=== PATIENT | female | born 1935 | race Caucasian/White ===

== ENCOUNTER → 2016-11-26 | Outpatient (REF) | payer MEDICARE, BC ==
[2016-11-26 11:47] LABS: MEAN CORPUSCULAR HEMOGLOBIN 29.8 pg (27.0-33.0); MEAN CORPUSCULAR HGB CONC 31.9 g/dl (32.0-36.5); MEAN CORPUSCULAR VOLUME 93.5 fl (80.0-96.0); RED CELL DISTRIBUTION WIDTH 15.1 % (11.5-14.5); WHITE BLOOD COUNT 7.8 K/mm3 (4.0-10.0)
[2016-11-26 12:06] LABS: ALBUMIN 3.5 GM/DL (3.2-5.2); ALBUMIN/GLOBULIN RATIO 0.97 (1.00-1.93); BILIRUBIN,TOTAL 0.6 MG/DL (0.2-1.0); CALCIUM LEVEL 9.1 MG/DL (8.8-10.2); CREATININE FOR GFR 1.71 MG/DL (0.55-1.02); GLOMERULAR FILTRATION RATE 30.5 (>32); TOTAL PROTEIN 7.1 GM/DL (6.4-8.2); URIC ACID 4.9 MG/DL (2.6-6.0)
== END ==
LOC: M SFHCCLAY 07:46
PROVIDERS: ATTEND Nurse Practitioner Family
DX: E11.40 Type 2 diabetes mellitus with diabetic neuropathy, unspecified (principal); E78.4 Other hyperlipidemia; E03.9 Hypothyroidism, unspecified; M10.9 Gout, unspecified; E55.9 Vitamin D deficiency, unspecified

== ENCOUNTER → 2017-03-28 | Outpatient (REF) | payer MEDICARE, BC ==
[2017-03-28 11:29] LABS: URIC ACID 3.6 MG/DL (2.6-6.0)
== END ==
LOC: M SFHCCLAY 07:33
PROVIDERS: ATTEND Nurse Practitioner Family
DX: E11.65 Type 2 diabetes mellitus with hyperglycemia (principal); E78.4 Other hyperlipidemia; E55.9 Vitamin D deficiency, unspecified; M10.9 Gout, unspecified

== ENCOUNTER → 2017-04-01 | Outpatient (CLI) | payer MEDICARE, BC ==
--- NOTE | 2017-04-01 17:27 | REP ---
Right shoulder: Three views: History: Shoulder injury. Injury in a fall 2-3 weeks ago. Pain with limitation of range of motion. Findings: There is diffuse osteopenia. The right glenohumeral and acromioclavicular joints are normally aligned. There is periarticular soft-tissue calcification in the region of the rotator cuff. There is also periarticular soft-tissue calcification along the superior aspect of the acromioclavicular joint and some tendon insertion site spurring is seen along the superior aspect of the acromion process. These changes are degenerative. Impression: No traumatic abnormality noted. Diffuse osteopenia. Periarticular calcifications at the AC joint and in the region of the distal rotator cuff tendons.
== END ==
LOC: M CLY 11:15
PROVIDERS: ATTEND Nurse Practitioner Family
DX: S49.91XA Unspecified injury of right shoulder and upper arm, initial encounter (principal); M85.80 Other specified disorders of bone density and structure, unspecified site; W19.XXXA Unspecified fall, initial encounter; Y92.9 Unspecified place or not applicable; Y93.9 Activity, unspecified; Y99.9 Unspecified external cause status
CPT/HCPCS: 73030; G0463

== ENCOUNTER → 2017-06-20 | Outpatient (REF) | payer MEDICARE, BC ==
[2017-06-20 13:28] LABS: URIC ACID 3.7 MG/DL (2.6-6.0)
== END ==
LOC: M SFHCCLAY 07:45
PROVIDERS: ATTEND Nurse Practitioner Family
DX: E11.40 Type 2 diabetes mellitus with diabetic neuropathy, unspecified (principal); S49.90XA Unspecified injury of shoulder and upper arm, unspecified arm, initial encounter; E78.4 Other hyperlipidemia; E03.9 Hypothyroidism, unspecified; M10.9 Gout, unspecified; E55.9 Vitamin D deficiency, unspecified; X58.XXXA Exposure to other specified factors, initial encounter; Y92.89 Other specified places as the place of occurrence of the external cause; Y93.89 Activity, other specified; Y99.8 Other external cause status

== ENCOUNTER → 2017-07-30 | Outpatient (REF) | payer MEDICARE, BC ==
[2017-07-30 14:16] LABS: BASO # 0.1 K/mm3 (0.0-0.2); EOS # 0.2 K/mm3 (0.0-0.50); EOS % 3.3 % (0.0-3.0); LARGE UNSTAINED CELL # 0.1 K/mm3 (0.0-0.4); LARGE UNSTAINED CELL % 1.4 % (0.0-4.0); LYMPH # 1.9 K/mm3 (1.5-4.5); LYMPH % 23.6 % (24.0-44.0); MEAN CORPUSCULAR HEMOGLOBIN 29.5 pg (27.0-33.0); MEAN CORPUSCULAR HGB CONC 30.4 g/dl (32.0-36.5); MEAN CORPUSCULAR VOLUME 97.2 fl (80.0-96.0); MONO # 0.4 K/mm3 (0.0-0.8); MONO % 4.9 % (0.0-5.0); NEUTROPHILS # 5.1 K/mm3 (1.8-7.7); NEUTROPHILS % 65.8 % (36.0-66.0); PLATELET COUNT, AUTOMATED 186 k/mm3 (150-450); RED CELL DISTRIBUTION WIDTH 16.9 % (11.5-14.5); WHITE BLOOD COUNT 7.7 K/mm3 (4.0-10.0)
[2017-07-30 14:40] LABS: ALBUMIN 3.5 GM/DL (3.2-5.2); ALBUMIN/GLOBULIN RATIO 0.97 (1.00-1.93); BILIRUBIN,TOTAL 0.4 MG/DL (0.2-1.0); CALCIUM LEVEL 8.8 MG/DL (8.8-10.2); CREATININE FOR GFR 1.33 MG/DL (0.55-1.02); GLOMERULAR FILTRATION RATE 40.7 (>32); POTASSIUM SERUM 4.3 MEQ/L (3.5-5.1); TOTAL PROTEIN 7.1 GM/DL (6.4-8.2)
[2017-07-30 14:52] LABS: FOLATE 14.4 NG/ML
[2017-07-30 15:08] LABS: ERYTHROCYTE SEDIMENTATION RATE 25 mm/hr (0-30)
[2017-08-04 08:10] LABS: Lyme Disease IgG/IgM Antibodie <0.91 ISR (0.00-0.90); Lyme Disease IgM Ab Quantitati <0.80 index (0.00-0.79); VITAMIN E LEVEL 10.8 mg/L (6.5-21.5)
== END ==
LOC: M LABNEURO 13:18
PROVIDERS: ATTEND Psychiatry & Neurology Neurology
DX: G62.9 Polyneuropathy, unspecified (principal); R25.1 Tremor, unspecified; Z79.899 Other long term (current) drug therapy

== ENCOUNTER → 2017-08-01 | Outpatient (CLI) | payer MEDICARE, BC ==
--- NOTE | 2017-08-04 08:51 | REP ---
MRI BRAIN WITHOUT CONTRAST: 08/01/2017. Clinical history: Trauma 06/09. Technique: Sagittal T1 with axial T2, FLAIR, gradient-echo and diffusion-weighted images with ADC mapping sequences. Findings: There are no prior studies. Lateral ventricles are midline, symmetric, dilated in proportion to the diffuse cerebral atrophy and age appropriate. There are multiple scattered deep and subcortical white matter T2 and FLAIR hyperintense foci along with some periventricular white matter change. Basal ganglia show a few white matter foci as well. There is cortical atrophy. There is no vascular territory infarct, hemorrhage, mass or mass effect. No extra-axial hemorrhage or significant fluid collection, other than the effect of atrophy. Corpus callosum, optic chiasm and craniocervical junction are unremarkable. There is a partially empty sella. Brainstem was unremarkable. The cerebellum shows atrophy. The seventh/eighth cranial nerve complexes were normal. Basal cisterns intact. Mastoids show partial opacification on the left representing some mastoiditis. The bilateral ethmoids and sphenoids show mild mucosal thickening. There is more mucosal disease in the left maxillary sinus. The frontal sinuses and right maxillary sinus clear. Orbits and contents symmetric and normal. Impression. 1. Fairly extensive chronic small vessel white matter ischemic changes in deep and periventricular white matter as well as the subcortical regions throughout.2. Ventriculomegaly with proportionate atrophy, age appropriate. 3. No intracranial hemorrhage, acute infarct, mass or other significant finding. The sinuses show mucosal thickening bilaterally in the ethmoids (minimal) sphenoids and left maxillary region. Some mild left mastoiditis. Signed by Benito Feliz MD 08/04/2017 03:39 P
== END ==
LOC: M PLARAD 15:18
PROVIDERS: ATTEND Psychiatry & Neurology Neurology
DX: G31.9 Degenerative disease of nervous system, unspecified (principal); R90.82 White matter disease, unspecified; I67.82 Cerebral ischemia

== ENCOUNTER → 2017-09-13 | Outpatient (CLI) | payer MEDICARE, BC ==
--- NOTE | 2017-09-15 19:31 | SLEEPCENT ---
DATE OF PROCEDURE: 09/13/2017 ORDERED BY: Gela Doshi Nocturnal polysomnography was performed for evaluation of sleep physiology in this patient with a history of coronary artery disease, cardiomyopathy and atrial fibrillation. 7 hours and 49 minutes of data were reviewed. There were 312 minutes of sleep identified. Sleep latency was prolonged at 32 minutes. Rapid eye movement (REM) sleep was quite delayed at 287 minutes. Sleep architecture showed severe fragmentation. Overall sleep efficiency was reduced at 67.9%. EKG showed atrial fibrillation with a ventricular response rate of 55 beats per minute. EEG showed essentially normal waveforms for awake and sleep. There were 217 respiratory events identified of 10 seconds in duration or greater for an apnea-hypopnea index of 41.7. The events were primarily obstructive, not exclusive to sleep stage nor body posture. Arousals from respiratory events occurred 12.7 times per hour and oxygen desaturations were seen into the 80s. Remaining measures of sleep physiology were normal. IMPRESSION: Severe obstructive sleep apnea syndrome (G47.33). Apnea-hypopnea index 41.7. RECOMMENDATION: The patient should be encouraged to return to the sleep disorder center at her earliest convenience for pressure therapy. In the interim, alcohol and sedative avoidance should be practiced and caution exercised during the operation of motor vehicles. Copy To: Dr. Lepe
== END ==
LOC: M SLEEP 20:00
PROVIDERS: ATTEND Nurse Practitioner Adult Health
DX: G47.33 Obstructive sleep apnea (adult) (pediatric) (principal)

== ENCOUNTER → 2017-10-05 | Outpatient (CLI) | payer MEDICARE, BC ==
--- NOTE | 2017-10-06 19:25 | SLEEPCENT ---
DATE OF PROCEDURE: 10/05/2017 ORDERED BY: Gela Doshi Nocturnal polysomnography was performed for titration of pressure therapy in this patient with severe obstructive sleep apnea syndrome, apnea-hypopnea index of 41.7. For testing, the patient was unable to tolerate nasal and oronasal masks. A nasal pillow device was used, Graze nasal pillows of small size, 4 cm of water pressure were applied to the circuit and the lights were extinguished. 7 hours and 33 minutes of data were reviewed. There were only 184 minutes of sleep identified. Sleep latency was prolonged at 40 minutes. The patient did not achieve rapid eye movement (REM) sleep. Overall sleep architecture was poor with fragmentation, poor progression and periods of wake. EKG shows atrial fibrillation with a ventricular response rate of 56 beats per minute. EEG showed normal waveforms for awake and sleep. Persistence of respiratory events prompted an increase in pressure therapy. The patient had difficulty with mouth opening despite the use of chin strap. Despite optimal mask fit, minimal air leak, a change was tried to bilevel therapy. Mask intolerance made identification of optimal pressure difficult. Best sleep was seen on bilevel therapy at a pressure of 12 inspiratory, expiratory pressure of 7, though minimal data was available at this pressure level. Significant limb activity was also appreciated on this occasion with a limb movement arousal index of 17. This is up substantially from the diagnostic study. IMPRESSION: Obstructive sleep apnea syndrome (G47.33). RECOMMENDATION: Initiation of pressure therapy using a bilevel device, inspiratory pressure of 12 over expiratory pressure of 7 would seem best based on this testing. However, the patient's mask intolerance and limited sleep during the study suggests that further titration would be of benefit once she has become accustomed to some form of pressure delivery device. It would seem, based on these results, that she would do best with a full face mask if she would allow for this given the mouth opening despite the use of a chin strap. Pending response to pressure therapy, re-titration studies are recommended to identify optimal pressure. Copy To: Dr. Lepe
== END ==
LOC: M SLEEP 20:00
PROVIDERS: ATTEND Nurse Practitioner Adult Health
DX: G47.33 Obstructive sleep apnea (adult) (pediatric) (principal)

== ENCOUNTER → 2017-12-26 | Outpatient (REF) | payer MEDICARE, BC ==
[2017-12-26 11:51] LABS: CHOLESTEROL LEVEL 237 MG/DL (<200); HDL CHOLESTEROL 60 MG/DL (>40); LDL CHOLESTEROL 142.4 MG/DL (<100); NON-HDL-C 177 MG/DL; TRIGLYCERIDES LEVEL 173 MG/DL (<150)
[2017-12-26 14:06] LABS: ESTIMATED AVERAGE GLUCOSE 163 MG/DL (60-110); HEMOGLOBIN A1c 7.3 %
== END ==
LOC: M SFHCCLAY 08:20
DX: E11.40 Type 2 diabetes mellitus with diabetic neuropathy, unspecified (principal); E78.4 Other hyperlipidemia
CPT/HCPCS: 83036

== ENCOUNTER → 2018-08-18 | Outpatient (REF) | payer MEDICARE, BC ==
[2018-08-18 15:56] LABS: ESTIMATED AVERAGE GLUCOSE 151 MG/DL (60-110); HEMOGLOBIN A1c 6.9 %
== END ==
LOC: M SFHCCLAY 08:43
DX: E11.40 Type 2 diabetes mellitus with diabetic neuropathy, unspecified (principal); S49.90XA Unspecified injury of shoulder and upper arm, unspecified arm, initial encounter; W18.30XA Fall on same level, unspecified, initial encounter; Y92.009 Unspecified place in unspecified non-institutional (private) residence as the place of occurrence of the external cause
CPT/HCPCS: 83036

== ENCOUNTER → 2018-08-19 | Outpatient (REF) | payer MEDICARE, BC ==
[2018-08-19 19:27] LABS: CREATININE, URINE 40.1 MG/DL; MALB URINE SIEMENS 14.6 MG/L
[2018-08-19 19:34] LABS: MAU/CREAT RATIO 36.4 MCG/MG (0.0-30.0)
== END ==
LOC: M SFHCCLAY 16:33
DX: E11.40 Type 2 diabetes mellitus with diabetic neuropathy, unspecified (principal)
CPT/HCPCS: 82043

== ENCOUNTER → 2018-09-10 | Outpatient (REF) | payer MEDICARE, BC ==
[2018-09-10 13:55] LABS: IRON (FE) 132 UG/DL (50-170); PERCENT SATURATION 52.8 % (13.2-45.0); TOTAL IRON BINDING CAPACITY 250 UG/DL (250-450)
[2018-09-10 14:03] LABS: FOLATE 16.8 NG/ML
== END ==
LOC: M LAB REF 13:17
DX: D64.9 Anemia, unspecified (principal)

== ENCOUNTER → 2018-09-10 | Outpatient (CLI) | payer MEDICARE, BC | LOC: M SMT 12:05 | DX: N18.3 Chronic kidney disease, stage 3 (moderate) (principal); R60.0 Localized edema; D64.9 Anemia, unspecified | CPT/HCPCS: 82746 ==

== ENCOUNTER 2018-09-20 10:51 | Emergency (ER) | payer MEDICARE, BC ==
[2018-09-20] MEDS: NS 1,000 ML IV ×2 (12:08)
[2018-09-20 12:18] LABS: HEMATOCRIT 29.8 % (36.0-47.0); HEMOGLOBIN 9.9 g/dl (12.0-15.5); MEAN CORPUSCULAR HEMOGLOBIN 34.4 pg (27.0-33.0); MEAN CORPUSCULAR HGB CONC 33.2 g/dl (32.0-36.5); MEAN CORPUSCULAR VOLUME 103.5 fl (80.0-96.0); PLATELET COUNT, AUTOMATED 118 10^3/uL (150-450); RED BLOOD COUNT 2.88 10^6/uL (4.00-5.40); RED CELL DISTRIBUTION WIDTH 19.4 % (11.5-14.5); WHITE BLOOD COUNT 3.3 10^3/uL (4.0-10.0)
[2018-09-20 12:24] LABS: BEDSIDE GLUCOSE 151 MG/DL (83-110)
[2018-09-20 12:28] LABS: ADD MANUAL DIFFER YES; DIFF SLIDE NUMBER 108; POS COUNT POS FLAG; POSITIVE MORPH POS FLAG
[2018-09-20 12:52] LABS: ALBUMIN 2.9 GM/DL (3.2-5.2); ALBUMIN/GLOBULIN RATIO 0.69 (1.00-1.93); ALKALINE PHOSPHATASE 69 U/L (45-117); ALT/SGPT 14 U/L (12-78); AMYLASE 16 U/L (25-115); ANION GAP 12 MEQ/L (8-16); AST/SGOT 24 U/L (7-37); BILIRUBIN,DIRECT 0.2 MG/DL (0.0-0.2); BILIRUBIN,TOTAL 0.9 MG/DL (0.2-1.0); BLOOD UREA NITROGEN 32 MG/DL (7-18); CALCIUM LEVEL 8.3 MG/DL (8.8-10.2); CARBON DIOXIDE LEVEL 26 MEQ/L (21-32); CHLORIDE LEVEL 97 MEQ/L (98-107); CK-MB VALUE MASS < 1.0 NG/ML (<3.6); CPK CREATINE PHOSPHOKINASE 76 U/L (26-192); CREATININE FOR GFR 1.42 MG/DL (0.55-1.30); GLOMERULAR FILTRATION RATE 37.6 (>32); GLUCOSE, FASTING 149 MG/DL (70-100); LIPASE 54 U/L (73-393); MB/CK RELATIVE INDEX 1.32 (< OR =4); POTASSIUM SERUM 4.8 MEQ/L (3.5-5.1); SODIUM LEVEL 135 MEQ/L (136-145); TOTAL PROTEIN 7.1 GM/DL (6.4-8.2); TROPONIN I < 0.02 NG/ML (< 0.10)
[2018-09-20 12:52] LABS: LACTIC ACID SEPSIS PROTOCOL 2.4 MMOL/L (0.4-2.0)
[2018-09-20 13:20] LABS: BASOPHILS 4 % (0-4); EOSINOPHILS 1 % (0-5); LYMPHOCYTES 36 % (16-52); METAMYELOCYTES 2 % (0-0); MONOCYTES 4 % (0-8); MYELOCYTES 5 % (0-0); NEUTROPHILS 48 % (35-75); PLATELET ESTIMATE DECREASED (NORMAL)
[2018-09-20] MEDS: MECLIZINE 12.5 MG TAB PO ×2 (13:32)
== END 2018-09-20 15:36 | disposition home or self-care (01) ==
LOC: M ED 10:51
DX: H81.399 Other peripheral vertigo, unspecified ear (principal); R11.2 Nausea with vomiting, unspecified; I67.81 Acute cerebrovascular insufficiency; R91.8 Other nonspecific abnormal finding of lung field; R94.31 Abnormal electrocardiogram [ECG] [EKG]; D53.9 Nutritional anemia, unspecified; I48.91 Unspecified atrial fibrillation; G31.9 Degenerative disease of nervous system, unspecified; E11.9 Type 2 diabetes mellitus without complications; I12.9 Hypertensive chronic kidney disease with stage 1 through stage 4 chronic kidney disease, or unspecified chronic kidney disease; N18.4 Chronic kidney disease, stage 4 (severe); G47.33 Obstructive sleep apnea (adult) (pediatric); K21.9 Gastro-esophageal reflux disease without esophagitis; Z95.5 Presence of coronary angioplasty implant and graft; Z90.49 Acquired absence of other specified parts of digestive tract; Z98.0 Intestinal bypass and anastomosis status; Z87.891 Personal history of nicotine dependence; Z88.5 Allergy status to narcotic agent; Z79.4 Long term (current) use of insulin; Z79.890 Hormone replacement therapy; Z79.899 Other long term (current) drug therapy
CPT/HCPCS: 71045

== ENCOUNTER → 2018-09-20 | Outpatient (REF) | payer MEDICARE, BC ==
[2018-09-21 13:04] LABS: FOLATE > 24.0 NG/ML
== END ==
LOC: M LABDRAWC 12:36
DX: D53.9 Nutritional anemia, unspecified (principal)

== ENCOUNTER → 2018-09-21 | Outpatient (REF) | payer MEDICARE, BC | LOC: M SFHCCLAY 11:28 | DX: D53.9 Nutritional anemia, unspecified (principal) ==

== ENCOUNTER 2018-09-25 10:57 | Emergency (ER) | payer MEDICARE, BC ==
[2018-09-25 11:57] LABS: HEMATOCRIT 29.8 % (36.0-47.0); HEMOGLOBIN 9.7 g/dl (12.0-15.5); MEAN CORPUSCULAR HEMOGLOBIN 33.8 pg (27.0-33.0); MEAN CORPUSCULAR HGB CONC 32.6 g/dl (32.0-36.5); MEAN CORPUSCULAR VOLUME 103.8 fl (80.0-96.0); PLATELET COUNT, AUTOMATED 119 10^3/uL (150-450); RED BLOOD COUNT 2.87 10^6/uL (4.00-5.40); RED CELL DISTRIBUTION WIDTH 19.8 % (11.5-14.5); WHITE BLOOD COUNT 5.1 10^3/uL (4.0-10.0)
[2018-09-25 12:00] LABS: ADD MANUAL DIFFER YES; DIFF SLIDE NUMBER 236; POS COUNT POS FLAG; POSITIVE MORPH POS FLAG
[2018-09-25 12:54] LABS: BASOPHILS 1 % (0-4); BLAST CELLS 3 % (0-0); LYMPHOCYTES 37 % (16-52); METAMYELOCYTES 6 % (0-0); MONOCYTES 2 % (0-8); MYELOCYTES 7 % (0-0); NEUTROPHILS 41 % (35-75); NUCLEATED RED BLOOD CELL 1 % (0-0); PROMYELOCYTES 3 % (0-0); ROULEAUX 1+
[2018-09-25 12:55] LABS: ANISOCYTOSIS 1+; PLATELET ESTIMATE DECREASED (NORMAL)
[2018-09-25 13:07] LABS: ACETAMINOPHEN LEVEL < 2.0 UG/ML (10.0-30.0); ALBUMIN 2.6 GM/DL (3.2-5.2); ALBUMIN/GLOBULIN RATIO 0.58 (1.00-1.93); ALKALINE PHOSPHATASE 73 U/L (45-117); ALT/SGPT 12 U/L (12-78); ANION GAP 14 MEQ/L (8-16); AST/SGOT 18 U/L (7-37); BILIRUBIN,DIRECT 0.3 MG/DL (0.0-0.2); BILIRUBIN,TOTAL 0.7 MG/DL (0.2-1.0); BLOOD UREA NITROGEN 28 MG/DL (7-18); CALCIUM LEVEL 8.2 MG/DL (8.8-10.2); CARBON DIOXIDE LEVEL 28 MEQ/L (21-32); CHLORIDE LEVEL 98 MEQ/L (98-107); CK-MB VALUE MASS < 1.0 NG/ML (<3.6); CPK CREATINE PHOSPHOKINASE 31 U/L (26-192); CREATININE FOR GFR 1.64 MG/DL (0.55-1.30); ETHYL ALCOHOL (ETHANOL) < 0.003 % (0.000-0.010); GLOMERULAR FILTRATION RATE 31.9 (>32); GLUCOSE, FASTING 189 MG/DL (70-100); MB/CK RELATIVE INDEX 3.23 (< OR =4); POTASSIUM SERUM 3.6 MEQ/L (3.5-5.1); SALICYLATE LEVEL < 1.7 MG/DL (5.0-30.0); SODIUM LEVEL 140 MEQ/L (136-145); TOTAL PROTEIN 7.1 GM/DL (6.4-8.2); TROPONIN I < 0.02 NG/ML (< 0.10)
[2018-09-25 13:36] LABS: LACTIC ACID SEPSIS PROTOCOL 2.5 MMOL/L (0.4-2.0)
[2018-09-25] MEDS ORDERED: NS 1,000 ML IV (15:00)
[2018-09-25 15:11] LABS: RETIC HEMOGLOBIN EQUIVALENT 37.4 pg (24-36); RETICULOCYTE # 57.4 10^9/L (17-77)
[2018-09-25 15:47] LABS: LDH LACTATE DEHYDROGENASE 300 U/L (84-246)
[2018-09-27 08:06] LABS: HAPTOGLOBIN 302 mg/dL (34-200)
== END 2018-09-25 15:57 | disposition short-term general hospital (02) ==
LOC: M ED 10:57
DX: C95.00 Acute leukemia of unspecified cell type not having achieved remission (principal); I48.91 Unspecified atrial fibrillation; I25.10 Atherosclerotic heart disease of native coronary artery without angina pectoris; E11.9 Type 2 diabetes mellitus without complications; I10 Essential (primary) hypertension; K44.9 Diaphragmatic hernia without obstruction or gangrene; Z95.5 Presence of coronary angioplasty implant and graft; Z79.01 Long term (current) use of anticoagulants; Z79.899 Other long term (current) drug therapy; Z88.5 Allergy status to narcotic agent; Z88.0 Allergy status to penicillin
CPT/HCPCS: 71045

== ENCOUNTER → 2018-10-06 | Outpatient (REF) ==
[2018-10-06 12:01] LABS: HEMATOCRIT 25.1 % (36.0-47.0); HEMOGLOBIN 7.9 g/dl (12.0-15.5); MEAN CORPUSCULAR HEMOGLOBIN 33.6 pg (27.0-33.0); MEAN CORPUSCULAR HGB CONC 31.5 g/dl (32.0-36.5); MEAN CORPUSCULAR VOLUME 106.8 fl (80.0-96.0); PLATELET COUNT, AUTOMATED 113 10^3/uL (150-450); RED BLOOD COUNT 2.35 10^6/uL (4.00-5.40); RED CELL DISTRIBUTION WIDTH 20.6 % (11.5-14.5); WHITE BLOOD COUNT 2.7 10^3/uL (4.0-10.0)
[2018-10-06 12:44] LABS: ANION GAP 10 MEQ/L (8-16); BLOOD UREA NITROGEN 33 MG/DL (7-18); CALCIUM LEVEL 8.1 MG/DL (8.8-10.2); CARBON DIOXIDE LEVEL 26 MEQ/L (21-32); CHLORIDE LEVEL 104 MEQ/L (98-107); CREATININE FOR GFR 1.33 MG/DL (0.55-1.30); GLOMERULAR FILTRATION RATE 40.6 (>32); GLUCOSE, FASTING 148 MG/DL (70-100); POTASSIUM SERUM 4.8 MEQ/L (3.5-5.1); SODIUM LEVEL 140 MEQ/L (136-145)
== END ==
DX: C92.00 Acute myeloblastic leukemia, not having achieved remission (principal)

== ENCOUNTER → 2018-10-08 | Outpatient (REF) ==
[2018-10-08 14:25] LABS: HEMATOCRIT 23.7 % (36.0-47.0); HEMOGLOBIN 7.5 g/dl (12.0-15.5); MEAN CORPUSCULAR HEMOGLOBIN 34.1 pg (27.0-33.0); MEAN CORPUSCULAR HGB CONC 31.6 g/dl (32.0-36.5); MEAN CORPUSCULAR VOLUME 107.7 fl (80.0-96.0); PLATELET COUNT, AUTOMATED 118 10^3/uL (150-450); RED CELL DISTRIBUTION WIDTH 20.9 % (11.5-14.5); WHITE BLOOD COUNT 2.9 10^3/uL (4.0-10.0)
[2018-10-08 14:42] LABS: ANION GAP 7 MEQ/L (8-16); BLOOD UREA NITROGEN 32 MG/DL (7-18); CALCIUM LEVEL 8.4 MG/DL (8.8-10.2); CARBON DIOXIDE LEVEL 26 MEQ/L (21-32); CHLORIDE LEVEL 105 MEQ/L (98-107); GLOMERULAR FILTRATION RATE 35.3 (>32); GLUCOSE, FASTING 147 MG/DL (70-100); IRON (FE) 104 UG/DL (50-170); PERCENT SATURATION 38.7 % (13.2-45.0); SODIUM LEVEL 138 MEQ/L (136-145); TOTAL IRON BINDING CAPACITY 269 UG/DL (250-450)
== END ==
DX: R53.1 Weakness (principal)

== ENCOUNTER 2018-10-09 10:15 | Outpatient (CLI) | payer MEDICARE, BC ==
[2018-10-09] MEDS ORDERED: diphenhydrAMINE 25 MG CAP As Ordered (14:43)
[2018-10-09] MEDS: diphenhydrAMINE 25 MG CAP PO (14:44)
[2018-10-09] MEDS ORDERED: ACETAMINOPHEN TAB 650MG DOSE (2X325MG) As Ordered (14:54)
[2018-10-09] MEDS: ACETAMINOPHEN TAB 650MG DOSE (2X325MG) PO (14:54)
[2018-10-09] MEDS: FUROSEMIDE 20 MG/2 ML VIAL (J1940) IV (19:59)
[2018-10-09] MEDS: PANTOPRAZOLE 40MG TAB (PROTONIX) PO (19:59)
== END 2018-10-09 21:46 ==
LOC: M LAB 10:15 → M MSPAV 18:10 → M LAB 21:46
DX: D64.9 Anemia, unspecified (principal)

== ENCOUNTER 2018-10-09 23:20 | Inpatient (IN) | payer MEDICARE, BC ==
[2018-10-10 00:22] LABS: ANION GAP 8 MEQ/L (8-16); BLOOD UREA NITROGEN 27 MG/DL (7-18); CALCIUM LEVEL 8.2 MG/DL (8.8-10.2); CARBON DIOXIDE LEVEL 27 MEQ/L (21-32); CHLORIDE LEVEL 104 MEQ/L (98-107); CREATININE FOR GFR 1.29 MG/DL (0.55-1.30); GLUCOSE, FASTING 195 MG/DL (70-100); NT-PRO BNP 8818 PG/ML (<450); POTASSIUM SERUM 4.8 MEQ/L (3.5-5.1); SODIUM LEVEL 139 MEQ/L (136-145)
[2018-10-10 00:29] LABS: MEAN CORPUSCULAR HEMOGLOBIN 33.3 pg (27.0-33.0); MEAN CORPUSCULAR VOLUME 101.6 fl (80.0-96.0); PLATELET COUNT, AUTOMATED 108 10^3/uL (150-450); RED BLOOD COUNT 3.15 10^6/uL (4.00-5.40); RED CELL DISTRIBUTION WIDTH 23.8 % (11.5-14.5); WHITE BLOOD COUNT 4.1 10^3/uL (4.0-10.0)
[2018-10-10 00:31] LABS: ADD MANUAL DIFFER YES; DIFF SLIDE NUMBER 299; HEMOGLOBIN 10.5 g/dl (12.0-15.5); MEAN CORPUSCULAR HGB CONC 32.8 g/dl (32.0-36.5); POS COUNT POS FLAG; POSITIVE MORPH POS FLAG
[2018-10-10 00:41] LABS: ATYPICAL LYMPH 1 % (0-5); BASOPHILS 3 % (0-4); BLAST CELLS 3 % (0-0); EOSINOPHILS 1 % (0-5); LYMPHOCYTES 44 % (16-52); METAMYELOCYTES 4 % (0-0); MONOCYTES 11 % (0-8); MYELOCYTES 1 % (0-0); NEUTROPHILS 31 % (35-75); PLATELET ESTIMATE NORMAL (NORMAL); PROMYELOCYTES 1 % (0-0)
[2018-10-10 00:42] LABS: ANISOCYTOSIS 3+; POLYCHROMASIA 1+
[2018-10-10] MEDS: VANCOMYCIN HCL 1,000 MG, VIAL MATE ADAPTER 1 EACH in D5W 250 ML IV (01:15)
[2018-10-10] MEDS: IMIPENEM/CILASTATIN 500 MG in D5W MINI-BAG PLUS 100 ML IV (01:24)
[2018-10-10] MEDS ORDERED: DEXTROSE 50% 50 ML SYRINGE IV (02:15)
[2018-10-10] MEDS ORDERED: ACETAMINOPHEN TAB 650MG DOSE (2X325MG) PO (02:15)
[2018-10-10] MEDS ORDERED: GLUCOSE 4 GM CHEW TABLET PO (02:15)
[2018-10-10] MEDS ORDERED: ONDANSETRON 4 MG TAB (S0181) PO (02:15)
[2018-10-10] MEDS ORDERED: BISACODYL 10 MG SUPP PR (02:15)
[2018-10-10] MEDS ORDERED: GLUCAGON FOR INJ 1 MG VIAL (J1610) SC (02:15)
[2018-10-10] MEDS: PARoxetine 10MG TABLET PO ×2 (03:00→20:31)
[2018-10-10] MEDS: LORATADINE 10 MG TAB PO ×2 (03:00→20:31)
[2018-10-10] MEDS: methylPREDNISolone INJ 125 MG/2 ML VIAL (J2930) IV (03:09)
[2018-10-10] MEDS: FUROSEMIDE 40 MG TAB PO (03:10)
[2018-10-10] MEDS: VANCOMYCIN HCL 500 MG in D5W MINI-BAG PLUS 100 ML IV (04:00)
[2018-10-10] MEDS: LORazepam 2 MG/ML VIAL (J2060) IV (04:56)
[2018-10-10] MEDS: IPRATROPIUM 0.5MG/ALBUTEROL 2.5MG INH SOL UD 3ML (DUONEB)(J7620) NEB (05:14)
[2018-10-10] MEDS ORDERED: NITROGLYCERIN 2% OINT 1 GM *U/D* PKT As Ordered (05:21)
[2018-10-10] MEDS ORDERED: FUROSEMIDE 100 MG/10 ML VIAL (J1940) As Ordered (05:22)
[2018-10-10] MEDS: FUROSEMIDE 100 MG/10 ML VIAL (J1940) IV (05:30)
[2018-10-10] MEDS: NITROGLYCERIN 2% OINT 1 GM *U/D* PKT TOP (05:30)
[2018-10-10 05:34] LABS: ABG BASE EXCESS -5.4 (-2.0-2.0); ABG HCO3 18.7 MEQ/L (22.0-26.0); ABG O2 SATURATION 97.5 % (95.0-99.0); ABG PARTIAL PRESSURE CO2 32.2 mmHg (35.0-45.0); ABG PARTIAL PRESSURE O2 103.2 mmHg (75.0-100.0); ABG TOTAL CO2 19.7 MEQ/L (23.0-31.0); ABG pH (ARTERIAL) 7.383 UNITS (7.350-7.450)
[2018-10-10] MEDS ORDERED: NITROGLYCERIN IN D5W 25MG/250ML (100MCG/ML) As Ordered (05:39)
[2018-10-10] MEDS: NITROGLYCERIN/D5W 100MCG/ML 25 MG in APPROPRIATE DILUENT 1 EA IV (05:45)
[2018-10-10] MEDS: LEVOTHYROXINE 75MCG TABLET (0.075MG) PO (06:00)
[2018-10-10 06:38] LABS: ABG BASE EXCESS -2.5 (-2.0-2.0); ABG HCO3 20.7 MEQ/L (22.0-26.0); ABG O2 SATURATION 98.6 % (95.0-99.0); ABG PARTIAL PRESSURE CO2 30.2 mmHg (35.0-45.0); ABG PARTIAL PRESSURE O2 129.4 mmHg (75.0-100.0); ABG STANDARD HCO3 22.4 MEQ/L (22.0-26.0); ABG TOTAL CO2 21.6 MEQ/L (23.0-31.0); ABG pH (ARTERIAL) 7.453 UNITS (7.350-7.450)
[2018-10-10 07:26] LABS: BEDSIDE GLUCOSE 216 MG/DL (83-110)
[2018-10-10] MEDS: HumaLOG INSULIN (NovoLOG) PER UNIT SC ×4 (07:36→21:00)
[2018-10-10] MEDS: diltiaZEM 125 MG in NS 100 ML IV (08:21)
[2018-10-10 08:38] LABS: ALBUMIN 2.7 GM/DL (3.2-5.2); ALBUMIN/GLOBULIN RATIO 0.61 (1.00-1.93); ALKALINE PHOSPHATASE 63 U/L (45-117); ALT/SGPT 18 U/L (12-78); ANION GAP 10 MEQ/L (8-16); AST/SGOT 30 U/L (7-37); BILIRUBIN,TOTAL 0.9 MG/DL (0.2-1.0); BLOOD UREA NITROGEN 29 MG/DL (7-18); CALCIUM LEVEL 8.2 MG/DL (8.8-10.2); CARBON DIOXIDE LEVEL 25 MEQ/L (21-32); CHLORIDE LEVEL 102 MEQ/L (98-107); CREATININE FOR GFR 1.32 MG/DL (0.55-1.30); GLOMERULAR FILTRATION RATE 40.9 (>32); GLUCOSE, FASTING 234 MG/DL (70-100); POTASSIUM SERUM 5.2 MEQ/L (3.5-5.1); SODIUM LEVEL 137 MEQ/L (136-145); TOTAL PROTEIN 7.1 GM/DL (6.4-8.2); TROPONIN I 1.02 NG/ML (< 0.10)
[2018-10-10] MEDS: methylPREDNISolone INJ 40 MG/1 ML VIAL (J2920) IV (10:41)
[2018-10-10] MEDS: SENOKOT S TAB PO ×2 (10:42→20:31)
[2018-10-10] MEDS: METOPROLOL SUCC (TopROL XL) 50MG **XL** TAB PO (10:42)
[2018-10-10] MEDS: PANTOPRAZOLE 40MG TAB (PROTONIX) PO (10:42)
[2018-10-10] MEDS: APIXABAN 2.5 MG TAB (ELIQUIS) PO ×2 (10:43→20:31)
[2018-10-10] MEDS: CLOPIDOGREL 75 MG TAB PO (10:43)
[2018-10-10] MEDS: METOCLOPRAMIDE 5 MG TAB PO ×4 (10:43→20:31)
[2018-10-10] MEDS: MULTIVITAMINS/MINERALS THERAP 1 TAB PO (10:43)
[2018-10-10] MEDS: ACETAMINOPHEN 500 MG TAB PO ×2 (10:44→20:30)
[2018-10-10] MEDS: FEBUXOSTAT 40 MG TABLET (ULORIC) PO (10:44)
[2018-10-10] MEDS: IMIPENEM/CILASTATIN 250 MG in D5W MINI-BAG PLUS 100 ML IV ×2 (11:14→13:35)
[2018-10-10 13:01] LABS: BEDSIDE GLUCOSE 213 MG/DL (83-110)
[2018-10-10] MEDS: LIDOCAINE 5% (LIDODERM) PATCH TD (13:35)
[2018-10-10 15:22] LABS: ERYTHROCYTE SEDIMENTATION RATE 126 mm/hr (0-30)
[2018-10-10 15:31] LABS: TROPONIN I 0.71 NG/ML (< 0.10)
[2018-10-10 16:53] LABS: BEDSIDE GLUCOSE 263 MG/DL (83-110)
[2018-10-10] MEDS: LEVEMIR (INSULIN DETEMIR) 1 UNITS/0.01ML SC (20:30)
[2018-10-10] MEDS: **NOTE PATIENT COMMENT** MISC XX (20:32)
[2018-10-10] MEDS ORDERED: VANCOMYCIN HCL 1,000 MG, VIAL MATE ADAPTER 1 EACH in D5W 250 ML IV (21:00)
[2018-10-10 21:02] LABS: BEDSIDE GLUCOSE 235 MG/DL (83-110)
[2018-10-10 22:56] LABS: TROPONIN I 0.43 NG/ML (< 0.10)
[2018-10-11] MEDS: LEVOTHYROXINE 75MCG TABLET (0.075MG) PO (06:21)
[2018-10-11 07:44] LABS: BEDSIDE GLUCOSE 182 MG/DL (83-110)
[2018-10-11] MEDS: MULTIVITAMINS/MINERALS THERAP 1 TAB PO (08:14)
[2018-10-11] MEDS: APIXABAN 2.5 MG TAB (ELIQUIS) PO ×2 (08:14→20:55)
[2018-10-11] MEDS: HumaLOG INSULIN (NovoLOG) PER UNIT SC ×4 (08:14→21:00)
[2018-10-11] MEDS: ACETAMINOPHEN 500 MG TAB PO ×2 (08:15→20:55)
[2018-10-11] MEDS: METOCLOPRAMIDE 5 MG TAB PO ×4 (08:15→20:55)
[2018-10-11] MEDS: SENOKOT S TAB PO ×2 (08:15→20:55)
[2018-10-11] MEDS: CLOPIDOGREL 75 MG TAB PO (08:15)
[2018-10-11] MEDS: FEBUXOSTAT 40 MG TABLET (ULORIC) PO (08:15)
[2018-10-11] MEDS: LIDOCAINE 5% (LIDODERM) PATCH TD (08:15)
[2018-10-11] MEDS: PANTOPRAZOLE 40MG TAB (PROTONIX) PO (08:15)
[2018-10-11] MEDS: METOPROLOL SUCC (TopROL XL) 50MG **XL** TAB PO (08:15)
[2018-10-11 12:15] LABS: BEDSIDE GLUCOSE 156 MG/DL (83-110)
[2018-10-11 16:54] LABS: HEMATOCRIT 24.6 % (36.0-47.0); HEMOGLOBIN 8.9 g/dl (12.0-15.5); MEAN CORPUSCULAR HEMOGLOBIN 37.2 pg (27.0-33.0); MEAN CORPUSCULAR HGB CONC 36.2 g/dl (32.0-36.5); MEAN CORPUSCULAR VOLUME 102.9 fl (80.0-96.0); RED BLOOD COUNT 2.39 10^6/uL (4.00-5.40); RED CELL DISTRIBUTION WIDTH 22.7 % (11.5-14.5)
[2018-10-11 16:57] LABS: ADD MANUAL DIFFER YES; DIFF SLIDE NUMBER 117; PLATELET COUNT, AUTOMATED 83 10^3/uL (150-450); POS COUNT POS FLAG; POSITIVE DIFF POS FLAG; POSITIVE MORPH POS FLAG
[2018-10-11 16:58] LABS: IMMATURE PLATELET FRACTION % 7.6 % (0.0-9.6)
[2018-10-11 17:22] LABS: ALBUMIN 2.6 GM/DL (3.2-5.2); ALBUMIN/GLOBULIN RATIO 0.62 (1.00-1.93); ALKALINE PHOSPHATASE 60 U/L (45-117); ALT/SGPT 20 U/L (12-78); ANION GAP 10 MEQ/L (8-16); AST/SGOT 25 U/L (7-37); BILIRUBIN,TOTAL 0.5 MG/DL (0.2-1.0); BLOOD UREA NITROGEN 58 MG/DL (7-18); CALCIUM LEVEL 8.3 MG/DL (8.8-10.2); CARBON DIOXIDE LEVEL 25 MEQ/L (21-32); CHLORIDE LEVEL 96 MEQ/L (98-107); CREATININE FOR GFR 1.89 MG/DL (0.55-1.30); GLUCOSE, FASTING 116 MG/DL (70-100); POTASSIUM SERUM 4.9 MEQ/L (3.5-5.1); SODIUM LEVEL 131 MEQ/L (136-145); TOTAL PROTEIN 6.8 GM/DL (6.4-8.2)
[2018-10-11 17:27] LABS: ATYPICAL LYMPH 23 % (0-5); BANDS 2 % (< 11); EOSINOPHILS 1 % (0-5); LYMPHOCYTES 41 % (16-52); MONOCYTES 7 % (0-8); NEUTROPHILS 26 % (35-75)
[2018-10-11 17:28] LABS: ANISOCYTOSIS 2+; PLATELET CLUMPS SMALL AMT; PLATELET ESTIMATE DECREASED (NORMAL)
[2018-10-11 17:29] LABS: POIKILOCYTOSIS 1+
[2018-10-11] MEDS: MAGNESIUM OXIDE 400 MG TAB (MAG-OX) PO (17:29)
[2018-10-11] MEDS: POLYVINYL ALCOHOL OPHTH SOLN 15 ML(LIQUITEARS) OU ×2 (17:29→20:55)
[2018-10-11 17:30] LABS: POLYCHROMASIA 1+; TEAR DROP CELLS 1+
[2018-10-11 18:31] LABS: BEDSIDE GLUCOSE 109 MG/DL (83-110)
[2018-10-11 20:50] LABS: BEDSIDE GLUCOSE 142 MG/DL (83-110)
[2018-10-11] MEDS: LORATADINE 10 MG TAB PO (20:55)
[2018-10-11] MEDS: PARoxetine 10MG TABLET PO (20:55)
[2018-10-11] MEDS: LEVEMIR (INSULIN DETEMIR) 1 UNITS/0.01ML SC (20:55)
[2018-10-11] MEDS: **NOTE PATIENT COMMENT** MISC XX (21:00)
[2018-10-12 04:14] LABS: HEMATOCRIT 25.2 % (36.0-47.0); HEMOGLOBIN 9.1 g/dl (12.0-15.5); MEAN CORPUSCULAR HEMOGLOBIN 37.1 pg (27.0-33.0); MEAN CORPUSCULAR HGB CONC 36.1 g/dl (32.0-36.5); MEAN CORPUSCULAR VOLUME 102.9 fl (80.0-96.0); PLATELET COUNT, AUTOMATED 76 10^3/uL (150-450); RED BLOOD COUNT 2.45 10^6/uL (4.00-5.40); RED CELL DISTRIBUTION WIDTH 22.8 % (11.5-14.5); WHITE BLOOD COUNT 5.1 10^3/uL (4.0-10.0)
[2018-10-12 04:32] LABS: ALBUMIN 2.4 GM/DL (3.2-5.2); ANION GAP 8 MEQ/L (8-16); BLOOD UREA NITROGEN 61 MG/DL (7-18); CALCIUM LEVEL 8.4 MG/DL (8.8-10.2); CARBON DIOXIDE LEVEL 27 MEQ/L (21-32); CHLORIDE LEVEL 99 MEQ/L (98-107); CREATININE FOR GFR 1.72 MG/DL (0.55-1.30); GLOMERULAR FILTRATION RATE 30.1 (>32); GLUCOSE, FASTING 71 MG/DL (70-100); MAGNESIUM LEVEL 2.2 MG/DL (1.8-2.4); PHOSPHORUS LEVEL 4.1 MG/DL (2.5-4.9); POTASSIUM SERUM 4.9 MEQ/L (3.5-5.1); SODIUM LEVEL 134 MEQ/L (136-145)
[2018-10-12] MEDS: LEVOTHYROXINE 75MCG TABLET (0.075MG) PO (06:00)
[2018-10-12] MEDS: HumaLOG INSULIN (NovoLOG) PER UNIT SC ×4 (07:30→21:25)
[2018-10-12 07:33] LABS: BEDSIDE GLUCOSE 60 MG/DL (83-110)
[2018-10-12] MEDS: MOM 30ML SUSPENSION UDC PO (08:13)
[2018-10-12] MEDS: APIXABAN 2.5 MG TAB (ELIQUIS) PO ×2 (08:14→21:23)
[2018-10-12] MEDS: MULTIVITAMINS/MINERALS THERAP 1 TAB PO (08:14)
[2018-10-12] MEDS: MAGNESIUM OXIDE 400 MG TAB (MAG-OX) PO (08:14)
[2018-10-12] MEDS: CLOPIDOGREL 75 MG TAB PO (08:14)
[2018-10-12] MEDS: METOCLOPRAMIDE 5 MG TAB PO ×4 (08:14→21:23)
[2018-10-12] MEDS: METOPROLOL SUCC (TopROL XL) 50MG **XL** TAB PO (08:14)
[2018-10-12] MEDS: PANTOPRAZOLE 40MG TAB (PROTONIX) PO (08:14)
[2018-10-12] MEDS: ACETAMINOPHEN 500 MG TAB PO ×2 (08:15→21:25)
[2018-10-12] MEDS: SENOKOT S TAB PO ×2 (08:15→21:23)
[2018-10-12] MEDS: FEBUXOSTAT 40 MG TABLET (ULORIC) PO (08:15)
[2018-10-12] MEDS: POLYVINYL ALCOHOL OPHTH SOLN 15 ML(LIQUITEARS) OU ×4 (08:15→21:25)
[2018-10-12] MEDS: LIDOCAINE 5% (LIDODERM) PATCH TD (08:16)
[2018-10-12 12:03] LABS: BEDSIDE GLUCOSE 136 MG/DL (83-110)
[2018-10-12 17:05] LABS: BEDSIDE GLUCOSE 104 MG/DL (83-110)
[2018-10-12 21:17] LABS: BEDSIDE GLUCOSE 168 MG/DL (83-110)
[2018-10-12] MEDS: PARoxetine 10MG TABLET PO (21:23)
[2018-10-12] MEDS: LORATADINE 10 MG TAB PO (21:23)
[2018-10-12] MEDS: **NOTE PATIENT COMMENT** MISC XX (21:26)
[2018-10-13] MEDS: LEVEMIR (INSULIN DETEMIR) 1 UNITS/0.01ML SC ×2 (00:30→01:20)
[2018-10-13] MEDS: ALPRAZolam 0.25 MG TAB PO (02:09)
[2018-10-13] MEDS: LEVOTHYROXINE 75MCG TABLET (0.075MG) PO (05:47)
[2018-10-13 06:38] LABS: BEDSIDE GLUCOSE 58 MG/DL (83-110)
[2018-10-13 07:29] LABS: BEDSIDE GLUCOSE 115 MG/DL (83-110)
[2018-10-13] MEDS: HumaLOG INSULIN (NovoLOG) PER UNIT SC ×2 (07:29→12:00)
[2018-10-13 07:44] LABS: BEDSIDE GLUCOSE CONFIRMATION 135 MG/DL (LESS THAN 200)
[2018-10-13] MEDS: CLOPIDOGREL 75 MG TAB PO (08:18)
[2018-10-13] MEDS: FEBUXOSTAT 40 MG TABLET (ULORIC) PO (08:18)
[2018-10-13] MEDS: MULTIVITAMINS/MINERALS THERAP 1 TAB PO (08:18)
[2018-10-13] MEDS: LIDOCAINE 5% (LIDODERM) PATCH TD (08:18)
[2018-10-13] MEDS: APIXABAN 2.5 MG TAB (ELIQUIS) PO (08:19)
[2018-10-13] MEDS: MAGNESIUM OXIDE 400 MG TAB (MAG-OX) PO (08:19)
[2018-10-13] MEDS: METOCLOPRAMIDE 5 MG TAB PO (08:19)
[2018-10-13] MEDS: SENOKOT S TAB PO (08:19)
[2018-10-13] MEDS: PANTOPRAZOLE 40MG TAB (PROTONIX) PO (08:19)
[2018-10-13] MEDS: ACETAMINOPHEN 500 MG TAB PO (08:19)
[2018-10-13] MEDS: METOPROLOL SUCC (TopROL XL) 50MG **XL** TAB PO (08:20)
[2018-10-13] MEDS: POLYVINYL ALCOHOL OPHTH SOLN 15 ML(LIQUITEARS) OU (08:20)
[2018-10-13 11:35] LABS: BEDSIDE GLUCOSE 216 MG/DL (83-110)
[2018-10-13] MEDS ORDERED: LEVEMIR (INSULIN DETEMIR) 1 UNITS/0.01ML SC (21:00)
== END 2018-10-13 12:03 | disposition home or self-care (01) | DRG 641 ==
LOC: M ED 23:20 → M MSPAV 10-12 13:38 → M ED INP 10-10 02:09 → M ICU 10-10 09:53
PROC: 30233N1 Transfusion of Nonautologous Red Blood Cells into Peripheral Vein, Percutaneous Approach (ICD-10-PCS; principal; 2018-10-09)
DX: E87.71 Transfusion associated circulatory overload (principal); C92.00 Acute myeloblastic leukemia, not having achieved remission; Z68.41 Body mass index [BMI] 40.0-44.9, adult; Z66 Do not resuscitate; I48.91 Unspecified atrial fibrillation; E66.01 Morbid (severe) obesity due to excess calories; E11.22 Type 2 diabetes mellitus with diabetic chronic kidney disease; G47.33 Obstructive sleep apnea (adult) (pediatric); I12.9 Hypertensive chronic kidney disease with stage 1 through stage 4 chronic kidney disease, or unspecified chronic kidney disease; K21.9 Gastro-esophageal reflux disease without esophagitis; E03.9 Hypothyroidism, unspecified; N18.3 Chronic kidney disease, stage 3 (moderate); I25.10 Atherosclerotic heart disease of native coronary artery without angina pectoris; Z90.710 Acquired absence of both cervix and uterus; Z90.12 Acquired absence of left breast and nipple; Z95.9 Presence of cardiac and vascular implant and graft, unspecified; Z88.0 Allergy status to penicillin; Z88.5 Allergy status to narcotic agent; Z88.1 Allergy status to other antibiotic agents; Z88.8 Allergy status to other drugs, medicaments and biological substances; Z85.3 Personal history of malignant neoplasm of breast; Z79.01 Long term (current) use of anticoagulants; Z79.02 Long term (current) use of antithrombotics/antiplatelets; Z79.4 Long term (current) use of insulin; Z79.899 Other long term (current) drug therapy; Z91.19 Patient's noncompliance with other medical treatment and regimen

== ENCOUNTER → 2018-10-09 | Outpatient (REF) ==
[2018-10-09 11:24] LABS: ANION GAP 7 MEQ/L (8-16); BLOOD UREA NITROGEN 27 MG/DL (7-18); CALCIUM LEVEL 8.2 MG/DL (8.8-10.2); CARBON DIOXIDE LEVEL 27 MEQ/L (21-32); CHLORIDE LEVEL 104 MEQ/L (98-107); CREATININE FOR GFR 1.24 MG/DL (0.55-1.30); GLUCOSE, FASTING 86 MG/DL (70-100); POTASSIUM SERUM 4.8 MEQ/L (3.5-5.1); SODIUM LEVEL 138 MEQ/L (136-145)
[2018-10-09 14:51] LABS: IMMEDIATE SPIN CROSSMATCH 1 2
== END ==
PROVIDERS: Specialist
DX: D64.9 Anemia, unspecified (principal); E87.5 Hyperkalemia